=== PATIENT | female | born 1985 | race Caucasian/White ===

== ENCOUNTER 2020-09-30 12:11 | Outpatient (CLI) | payer OTHER ==
[~2020-09-30] VITALS: Ht 172.7 cm; Wt 79.5 kg
[~2020-09-30 12:11] MED LIST: IBUP-1222 PO
[2020-09-30 13:02] LABS: BASOPHILS % (AUTO) 1 % (0-1); EOSINOPHILS % (AUTO) 1 % (1-7); LYMPHOCYTES % (AUTO) 17 % (22-44); MEAN CORPUSCULAR HEMOGLOBIN 30.7 pg (27.0-34.8); MEAN CORPUSCULAR HGB CONC 33.5 g/dL (32.4-35.8); MONOCYTES % (AUTO) 9 % (2-9); NEUTROPHILS % (AUTO) 73 % (42-75); PLATELET COUNT 242 x10^3/uL (130-400); RED BLOOD COUNT 4.14 x10^6/uL (3.82-5.3); RED CELL DISTRIBUTION WIDTH 13.5 % (9.6-15.2)
[2020-09-30 13:04] LABS: ALANINE AMINOTRANSFERASE 20 U/L (12-78); ALBUMIN 2.5 g/dL (3.4-5.0); ANION GAP 9 mmol/L (5-15); CALCIUM 9.1 mg/dL (8.5-10.1); CHLORIDE 109 mmol/L (98-107)
[2020-09-30 13:06] LABS: ALKALINE PHOSPHATASE 167 U/L (45-117); BILIRUBIN,TOTAL 0.3 mg/dL (0.2-1.0); TOTAL PROTEIN 6.2 g/dL (6.4-8.2)
[2020-09-30 13:32] LABS: MICROSCOPIC AUTO
[2020-09-30 13:51] LABS: CREATININE,URINE RANDOM 51.5 mg/dL
== END 2020-09-30 14:52 | disposition home or self-care (01) ==
LOC: LDOP 12:11
PROVIDERS: ATTEND Obstetrics & Gynecology
DX: O09.523 Supervision of elderly multigravida, third trimester (principal); O16.3 Unspecified maternal hypertension, third trimester; Z3A.38 38 weeks gestation of pregnancy
CPT/HCPCS: 36415; 59025; 80053; 81001; 82570; 84156; 84550; 85025; 87086

== ENCOUNTER 2020-10-03 13:18 | Inpatient (IN) | payer OTHER ==
[~2020-10-03] VITALS: Ht 172.7 cm; Wt 77.0 kg
[2020-10-03] MEDS ORDERED: FENTANYL PF 100 MCG/2ML IV PRN (13:30)
[2020-10-03] MEDS ORDERED: FENTANYL PF 100 MCG/2ML IVPush PRN (13:30)
[2020-10-03] MEDS ORDERED: OXYTOCIN 30U/ 0.9% NaCL 500ML 500 ML IV ONE (13:30)
[2020-10-03] MEDS ORDERED: ONDANSETRON 2MG/ML, 2ML IVPush PRN (13:30)
[2020-10-03] MEDS ORDERED: D5%-LACTATED RINGERS 1,000 ML IV SCH (13:30)
[2020-10-03] MEDS ORDERED: TERBUTALINE 1 MG/ML, 1ML SQ PRN (13:30)
[2020-10-03] MEDS ORDERED: CALCIUM CARBONATE 500 MG TAB.CHEW PO PRN (13:30)
[2020-10-03] MEDS ORDERED: LACTATED RINGERS 1,000 ML IV SCH (13:30)
[2020-10-03] MEDS ORDERED: OXYTOCIN 30U/ 0.9% NaCL 500ML 500 ML IV PRN (13:30)
[2020-10-03] MEDS ORDERED: TERBUTALINE 1 MG/ML, 1ML IVPush PRN (13:30)
[2020-10-03 14:07] LABS: BASOPHILS % (AUTO) 1 % (0-1); EOSINOPHILS % (AUTO) 1 % (1-7); LYMPHOCYTES % (AUTO) 17 % (22-44); MEAN CORPUSCULAR HEMOGLOBIN 30.6 pg (27.0-34.8); MEAN CORPUSCULAR HGB CONC 33.5 g/dL (32.4-35.8); MEAN PLATELET VOLUME 8.6 fL (7.4-10.4); MONOCYTES % (AUTO) 7 % (2-9); NEUTROPHILS % (AUTO) 75 % (42-75); PLATELET COUNT 253 x10^3/uL (130-400); RED BLOOD COUNT 4.27 x10^6/uL (3.82-5.3); RED CELL DISTRIBUTION WIDTH 13.7 % (9.6-15.2)
[2020-10-03 14:16] LABS: ALANINE AMINOTRANSFERASE 23 U/L (12-78); ALBUMIN 2.6 g/dL (3.4-5.0); ANION GAP 11 mmol/L (5-15); CALCIUM 8.5 mg/dL (8.5-10.1); CHLORIDE 106 mmol/L (98-107); CREATININE 0.61 mg/dL (0.55-1.02)
[2020-10-03 14:19] LABS: ALKALINE PHOSPHATASE 176 U/L (45-117); BILIRUBIN, DIRECT < 0.1 mg/dL (0.1-0.2); BILIRUBIN,TOTAL 0.3 mg/dL (0.2-1.0); TOTAL PROTEIN 6.5 g/dL (6.4-8.2)
[2020-10-03 14:37] LABS: MICROSCOPIC INDICATED
[2020-10-03] MEDS ORDERED: LIDOCAINE 1%, 20ML ONE (14:44)
[2020-10-03] MEDS ORDERED: NEWBORN KIT ONE (14:44)
[2020-10-03] MEDS ORDERED: MISOPROSTOL 200 MCG TABLET ONE (14:45)
[2020-10-03] MEDS ORDERED: MISOPROSTOL 25 MCG TABLET ONE (14:45)
[2020-10-03 14:59] LABS: PROTEIN/CREATININE RATIO,URINE < 110 (0-200); TOTAL PROTEIN,URINE RANDOM < 5 mg/dL (0-12)
[2020-10-03] MEDS ORDERED: MISOPROSTOL 25 MCG TABLET VG PRN (15:30)
[2020-10-04] MEDS ORDERED: IBUPROFEN 600 MG TABLET ONE (02:16)
[2020-10-04] MEDS ORDERED: OXYcodone/APAP 5/325MG TABLET PO PRN ×2 (02:30)
[2020-10-04] MEDS ORDERED: MISOPROSTOL 200 MCG TABLET PR PRN (02:30)
[2020-10-04] MEDS ORDERED: SIMETHICONE 80 MG CHEW TAB PO PRN (02:30)
[2020-10-04] MEDS ORDERED: CALCIUM CARBONATE 500 MG TAB.CHEW PO PRN (02:30)
[2020-10-04] MEDS ORDERED: DOCUSATE 100 MG CAPSULE PO PRN (02:30)
[2020-10-04] MEDS ORDERED: OXYTOCIN 30U/ 0.9% NaCL 500ML 500 ML IV SCH (02:30)
[2020-10-04] MEDS ORDERED: ONDANSETRON 2MG/ML, 2ML IV PRN (02:30)
[2020-10-04] MEDS: IBUPROFEN 600 MG TABLET PO PRN (02:34)
[2020-10-04 03:20] VITALS: BP 148/80
[2020-10-04 05:15] VITALS: BP 123/79
[2020-10-04 08:15] VITALS: BP 124/78
[2020-10-04] MEDS: PRENATAL VIT/IRON/FA 1 EACH TABLET PO SCH (09:00)
[2020-10-04 10:18] LABS: BASOPHILS % (AUTO) 0 % (0-1); EOSINOPHILS % (AUTO) 0 % (1-7); LYMPHOCYTES % (AUTO) 8 % (22-44); MEAN CORPUSCULAR HEMOGLOBIN 31.1 pg (27.0-34.8); MEAN CORPUSCULAR HGB CONC 33.7 g/dL (32.4-35.8); MEAN PLATELET VOLUME 8.9 fL (7.4-10.4); MONOCYTES % (AUTO) 6 % (2-9); NEUTROPHILS % (AUTO) 85 % (42-75); PLATELET COUNT 238 x10^3/uL (130-400); RED BLOOD COUNT 4.15 x10^6/uL (3.82-5.3); RED CELL DISTRIBUTION WIDTH 14.1 % (9.6-15.2)
[2020-10-04 12:30] VITALS: BP 128/84
[2020-10-04 16:30] VITALS: BP 129/84
[2020-10-04 20:26] VITALS: BP 124/82
[2020-10-05 00:10] VITALS: BP 121/81
[2020-10-05] MEDS: IBUPROFEN 600 MG TABLET PO PRN (02:40)
[2020-10-05] MEDS: PRENATAL VIT/IRON/FA 1 EACH TABLET PO SCH (09:00)
[2020-10-05 09:30] VITALS: BP 122/81
[2020-10-05] MEDS ORDERED: IBUP-1222 PO (10:56)
== END 2020-10-05 14:25 | disposition home or self-care (01) | DRG 807 ==
LOC: LDOP 13:18 → LDIP 13:48 → 2NW 10-04 04:02
PROVIDERS: ADMIT Obstetrics & Gynecology; ATTEND Obstetrics & Gynecology
PROC: 10E0XZZ Delivery of Products of Conception, External Approach (ICD-10-PCS; principal; 2020-10-04)
PROC: 10907ZC Drainage of Amniotic Fluid, Therapeutic from Products of Conception, Via Natural or Artificial Opening (ICD-10-PCS; 2020-10-04)
DX: O13.4 Gestational [pregnancy-induced] hypertension without significant proteinuria, complicating childbirth (principal); Z37.0 Single live birth; O69.81X0 Labor and delivery complicated by cord around neck, without compression, not applicable or unspecified; O43.193 Other malformation of placenta, third trimester; O99.284 Endocrine, nutritional and metabolic diseases complicating childbirth; Z20.822 Contact with and (suspected) exposure to COVID-19; E03.9 Hypothyroidism, unspecified; Z3A.39 39 weeks gestation of pregnancy; Z80.7 Family history of other malignant neoplasms of lymphoid, hematopoietic and related tissues; Z82.49 Family history of ischemic heart disease and other diseases of the circulatory system; Z83.3 Family history of diabetes mellitus
CPT/HCPCS: 36415; 80053; 81001; 82248; 82570; 84156; 84550; 85025; 86592; 86850; 86900; 87635; G0378